=== PATIENT | male | born 1980 | race Caucasian/White ===

== ENCOUNTER → 2021-03-05 09:42 | Outpatient (BNVA) | payer OTHER, SELFPAY | PROVIDERS: Visit Provider Nurse Practitioner Family | DX: Z20.822 Contact with and (suspected) exposure to COVID-19 (principal) | CPT/HCPCS: 87635 ==

== ENCOUNTER → 2021-05-15 10:15 | Outpatient (BNVA) | payer OTHER, SELFPAY | PROVIDERS: PCP Nurse Practitioner Family; Visit Provider Nurse Practitioner Family | DX: M25.511 Pain in right shoulder (principal); M25.521 Pain in right elbow; M25.621 Stiffness of right elbow, not elsewhere classified; M67.441 Ganglion, right hand; G56.00 Carpal tunnel syndrome, unspecified upper limb; M79.641 Pain in right hand; Z98.890 Other specified postprocedural states; M25.611 Stiffness of right shoulder, not elsewhere classified | CPT/HCPCS: 73030; 73080; 73130 ==

== ENCOUNTER → 2021-06-20 08:58 | Outpatient (BNVA) | payer OTHER, SELFPAY | PROVIDERS: PCP Nurse Practitioner Family; Referring Provider Nurse Practitioner Family; Visit Provider Specialist | DX: M79.641 Pain in right hand (principal); M25.511 Pain in right shoulder; G89.29 Other chronic pain; M25.521 Pain in right elbow; M67.441 Ganglion, right hand | CPT/HCPCS: 73030 ==